=== PATIENT | female | born 1995 | race African-American/Black ===

== ENCOUNTER 2020-07-11 14:06 | Emergency (ER) | payer BC ==
[2020-07-11 14:11] VITALS: BP 133/77
[2020-07-11] MEDS ORDERED: ONDANSETRON 4 MG TAB.RAPDIS PO ONE (14:32)
--- NOTE | 2020-07-11 14:33 | ER Document Report ---
ED Medical Screen (RME) - General Chief Complaint: Abdominal Pain Stated Complaint: ABDOMINAL PAIN Time Seen by Provider: 07/11/20 14:30 Notes: Patient presents complaining of lower abdominal pain and low back pain since yesterday. Patient reports nausea and vomiting x3 episodes. Patient denies any fever or urinary symptoms. I have greeted and performed a rapid initial assessment of this patient. A comprehensive ED assessment and evaluation of the patient, analysis of test results and completion of the medical decision making process will be conducted by additional ED providers. Physical Exam - Vital signs Vitals: Temp Pulse Resp BP Pulse Ox 98.5 F 74 16 133/77 H 100 07/11/20 14:10 07/11/20 14:10 07/11/20 14:10 07/11/20 14:10 07/11/20 14:10 - Abdominal Tenderness: Tender - Lower pelvic tenderness, exam limited as patient is sitting in chair Course - Vital Signs Vital signs: Temp Pulse Resp BP Pulse Ox 98.5 F 74 16 133/77 H 100 07/11/20 14:10 07/11/20 14:10 07/11/20 14:10 07/11/20 14:10 07/11/20 14:10
[2020-07-11 15:13] LABS: ABSOLUTE LYMPHOCYTES (AUTO) 1.6 10^3/uL (0.5-4.7); ABSOLUTE MONOCYTES (AUTO) 0.6 10^3/uL (0.1-1.4); ABSOLUTE NEUT (AUTO) 8.9 10^3/uL (1.7-8.2); BASOPHILS % (AUTO) 0.3 % (0-2); EOSINOPHILS % (AUTO) 0.1 % (0-6); HEMATOCRIT 38.9 % (36.0-47.0); HEMOGLOBIN 13.6 g/dL (12.0-15.5); LYMPHOCYTES % (AUTO) 14.6 % (13-45); MEAN CORPUSCULAR HEMOGLOBIN 31.5 pg (27.0-33.4); MEAN CORPUSCULAR VOLUME 90 fl (80-97); MONOCYTES % (AUTO) 5.2 % (3-13); PLATELET COUNT 370 10^3/uL (150-450); RED BLOOD COUNT 4.34 10^6/uL (3.72-5.28); RED CELL DISTRIBUTION WIDTH 14.5 % (11.5-14.0); SEGMENTED NEUTROPHILS % (AUTO) 79.8 % (42-78); TOTAL CELLS COUNTED % (AUTO) 100 %; WHITE BLOOD COUNT 11.2 10^3/uL (4.0-10.5)
[2020-07-11 15:20] LABS: APPEARANCE,URINE SLIGHTLY-CLOUDY; BILIRUBIN,URINE NEGATIVE (NEGATIVE); COLOR,URINE YELLOW; GLUCOSE, URINE NEGATIVE (NEGATIVE); KETONES,URINE NEGATIVE (NEGATIVE); LEUKOCYTE ESTERASE,URINE SMALL (NEGATIVE); NITRITE,URINE NEGATIVE (NEGATIVE); PROTEIN,URINE NEGATIVE (NEGATIVE); URINE SPECIFIC GRAVITY 1.012; UROBILINOGEN,URINE NEGATIVE mg/dL (<2.0)
[2020-07-11 15:31] LABS: ALBUMIN 4.7 g/dL (3.5-5.0); ALKALINE PHOSPHATASE 84 U/L (38-126); ANION GAP 13 (5-19); ASPARTATE AMINO TRANSFERASE 26 U/L (14-36); BILIRUBIN,DIRECT 0.3 mg/dL (0.0-0.4); BILIRUBIN,TOTAL 0.5 mg/dL (0.2-1.3); BLOOD UREA NITROGEN 10 mg/dL (7-20); CALCIUM 10.1 mg/dL (8.4-10.2); CARBON DIOXIDE 27 mmol/L (22-30); CHLORIDE 100 mmol/L (98-107); GLUCOSE 98 mg/dL (75-110); POTASSIUM 4.1 mmol/L (3.6-5.0)
[2020-07-11 16:44] LABS: CHLAM PCR NOT DETECTED (NOT DETECT)
[2020-07-11] MEDS ORDERED: ONDANSETRON 4 MG TAB.RAPDIS ONE (17:00)
[2020-07-11] MEDS ORDERED: KETOROLAC TROMETHAMINE 60 MG/2 ML SDV IM ONE (17:02)
--- NOTE | 2020-07-11 17:09 | ER Document Report ---
ED General - General Chief Complaint: Abdominal Cramping Stated Complaint: ABDOMINAL PAIN Time Seen by Provider: 07/11/20 14:30 Primary Care Provider: KATHY BOURGEOIS MD [ACTIVE STAFF] - Follow up as needed Mode of Arrival: Ambulatory Information source: Patient Notes: Patient is a 24-year-old -[place] female coming in today with pelvic pain and cramping with nausea and vomiting. She indicates that she is seeing a chef kitchen manager for irregular and painful periods and is getting ready to start on a medication to help regulate this. It sounds as though her menses came on and she is having an increased amount of pain and has thrown up 3 or 4 times. No f carlyle or chills. No vaginal discharge. Feels consistent with her chronic history. - Related Data Allergies/Adverse Reactions: No Known Allergies Allergy (Verified 07/11/20 14:34) Past Medical History - Social History Smoking Status: Never Smoker Chew tobacco use (# tins/day): No Frequency of alcohol use: Occasional Drug Abuse: None Family History: Reviewed & Not Pertinent Review of Systems - Review of Systems Notes: Constitutional: No fevers. No chills. EENT: No eye redness. No eye pain. No ear pain. No sore throat. Cardiovascular: No chest pain. No palpitations. Respiratory: No cough. No shortness of breath. No respiratory distress. Gastrointestinal: No abdominal pain. No nausea, vomiting, or diarrhea. Genitourinary: Atraumatic. No lesions. No pain. No discharge. Positive for vaginal bleeding, positive for pelvic pain Musculoskeletal: Atraumatic. No swelling. No deformities. Skin: No rash or lesions. Lymphatic: No swollen lymph nodes. Neurologic: No headache. No syncope. Psychiatric: No suicidal or homicidal ideation. Physical Exam - Vital signs Vitals: Temp Pulse Resp BP Pulse Ox 98.5 F 74 16 133/77 H 100 07/11/20 14:10 07/11/20 14:10 07/11/20 14:10 07/11/20 14:10 07/11/20 14:10 - Notes Notes: General: Well-developed, well-nourished. In no acute distress. Non-toxic appearing. Cardiac: Well-perfused. Regular rate and rhythm. No murmurs, rubs, or gallops. Pulmonary: No respiratory distress. No cyanosis. Bilateral lung fiels are clear to auscultation. Abdominal: Non-distended. Non-rigid. Bowels sounds are present in all four quadrants. No guarding or rebound. Positive tenderness to palpation suprapubic region. HEENT: Head is atraumatic. Conjunctivae not reddened. No tearing. PERRL. EOMI. Orbits atraumatic. No periorbital swelling or erythema. Oropharynx is without erythema, swelling, or exudates. Neck: Supple. No adenopathy. No meningismus. Dermatologic: Warm with good turgor. No rash. Atraumatic. Chest: Atraumatic. No chest wall tenderness to palpation. Musculoskeletal: Moves all extremities well. No range of motion deficits. no muscular or joint tenderness. No paraspinal muscle tenderness. no midline spinal tenderness or step-off. Genitourinary: Examination deferred Neurologic: No gross neurologic deficits. Psychiatric: Normal mood. Course - Re-evaluation Re-evalutation: 07/11/20 17:08 Patient's labs are unremarkable. She is nontoxic-appearing. She has benign exam. We will give her some Zofran and an IM shot of Toradol and see if this he lps with her pain. Also do a p.o. challenge. 07/11/20 18:23 Pain is better. Tolerating p.o. will discharge home - Vital Signs Vital signs: Temp Pulse Resp BP Pulse Ox 98.5 F 74 16 133/77 H 100 07/11/20 14:10 07/11/20 14:10 07/11/20 14:10 07/11/20 14:10 07/11/20 14:10 - Laboratory Result Diagrams: 07/11/20 14:58 07/11/20 14:58 Laboratory results interpreted by me: 07/11/20 07/11/20 14:58 14:58 WBC 11.2 H RDW 14.5 H Absolute Neuts (auto) 8.9 H Seg Neutrophils % 79.8 H Urine Blood LARGE H Ur Leukocyte Esterase SMALL H Discharge - Discharge Clinical Impression: Dysmenorrhea Nausea and vomiting Qualifiers: Vomiting type: unspecified Vomiting Intractability: non-intractable Qualified Code(s): R11.2 - Nausea with vomiting, unspecified Condition: Good Disposition: HOME, SELF-CARE Instructions: Anti-Inflammatory Medication ([facility]), Antinausea Medication ([facility]), Dysmenorrhea ([facility]), Vomiting ([facility]) Prescriptions: Naproxen 500 mg PO BID 5 Days #10 tablet Ondansetron [Zofran Odt 4 mg Tablet] 1 tab PO Q4H PRN #10 tab.rapdis PRN Reason: For Nausea/Vomiting Referrals: KATHY BOURGEOIS MD [ACTIVE STAFF] - Follow up as needed
== END 2020-07-11 18:56 | disposition home or self-care (01) ==
LOC: ER 14:06
DX: N94.6 Dysmenorrhea, unspecified (principal); R11.2 Nausea with vomiting, unspecified; R10.2 Pelvic and perineal pain; R10.9 Unspecified abdominal pain
CPT/HCPCS: 99284; 96372; 36415; 84703; 85025; 80053; 81001; 87491; 87591; J1885; S0119